=== PATIENT | female | born 1985 | race Caucasian/White ===

== ENCOUNTER 2017-01-19 05:04 | Emergency (ER) | payer OTHER ==
[~2017-01-19] VITALS: Ht 162.6 cm; Wt 69.4 kg
[2017-01-19 05:10] VITALS: BP_SYST 144
--- NOTE | 2017-01-19 05:10 | NUR ---
Patient to ER bed 8 to gown for evaluation. Side rails up.
--- NOTE | 2017-01-19 05:20 | NUR ---
PT IN BED 8 WITH C/O ABDOMINAL PAIN AND NAUSEA, DR ARIZA AWARE.
--- NOTE | 2017-01-19 05:21 | NUR ---
ER at bedside examining patient.
[2017-01-19] MEDS ORDERED: PREN-89 PO (05:24)
[2017-01-19] MEDS ORDERED: ONDANSETRON 4 MG ODT TAB PO ONE (05:30)
[2017-01-19 06:09] LABS: BILIRUBIN,URINE NEGATIVE (NEGATIVE); CLARITY/URINE HAZY (CLEAR); COLOR,URINE YELLOW (YELLOW); GLUCOSE,URINE NEGATIVE (NEGATIVE); KETONES,URINE NEGATIVE (NEGATIVE); LEUKOCYTE ESTERASE ,URINE 1+ (NEGATIVE); NITRITE, URINE NEGATIVE (NEGATIVE); PROTEIN URINE NEGATIVE (NEGATIVE); UROBILINOGEN,URINE 0.2 (0.2-1.0)
[2017-01-19 06:15] LABS: BASOPHILS % (AUTO) 0.4 % (0.0-2.0); EOSINOPHILS # (AUTO) 0.2 K/uL (0.0-0.4); EOSINOPHILS % (AUTO) 1.8 % (0.0-4.0); LYMPHOCYTES # (AUTO) 1.4 K/uL (1.0-5.5); LYMPHOCYTES % (AUTO) 14.4 % (20.5-51.5); MEAN CORPUSCULAR HEMOGLOBIN 28 pg (27-31); MEAN CORPUSCULAR HGB CONC 33 % (32-36); MEAN CORPUSCULAR VOLUME 85 fL (79.0-98.0); MONOCYTES # (AUTO) 0.9 K/uL (0.0-1.0); MONOCYTES % (AUTO) 9.4 % (1.7-9.3); NEUTROPHILS # (AUTO) 7.5 K/uL (1.8-7.7); PLATELET COUNT (AUTO) 213 K/uL (130-430); RED BLOOD CELL COUNT(AUTO) 4.62 MIL/uL (4.2-6.2); RED CELL DISTRIBUTION WIDTH 12.4 % (9.0-15.0)
[2017-01-19 06:17] LABS: BLOOD, URINE TRACE (NEGATIVE)
[2017-01-19 06:19] LABS: CALCIUM 8.8 mg/dL (8.4-11.0); CREATININE 0.77 mg/dL (0.55-1.30); POTASSIUM 3.7 mmol/L (3.5-5.1)
[2017-01-19 06:24] LABS: TOTAL BILIRUBIN 0.5 mg/dL (0.0-1.0); TOTAL PROTEIN, SERUM 8.1 g/dL (6.4-8.3)
[2017-01-19 06:33] LABS: RBC,URINE 0-3 /HPF (0-3)
[2017-01-19 06:34] LABS: BACTERIA,URINE FEW /HPF (None Seen); MUCUS,URINE 1+ /LPF (None Seen)
[2017-01-19 06:50] VITALS: BP_SYST 132
--- NOTE | 2017-01-19 06:51 | NUR ---
Patient given written and verbal discharge instructions and verbalizes understanding. ER MD discussed with patient the results and treatment provided. Patient in stable condition. ID arm band removed. Rx of ZOFRAN, MOTRIN given. Patient educated on pain management and to follow up with PMD. Pain Scale 0/10. Opportunity for questions provided and answered.
== END 2017-01-19 06:50 | disposition home or self-care (01) ==
LOC: SED 05:04
DX: R10.9 Unspecified abdominal pain (principal); R11.0 Nausea; R19.7 Diarrhea, unspecified; R51 Headache; J02.9 Acute pharyngitis, unspecified
CPT/HCPCS: 36415; 74020; 80053; 81000; 81025; 85025; 87086; 99285; Q0162

== ENCOUNTER 2022-06-12 09:24 | Emergency (ER) | payer BC, OTHER ==
[~2022-06-12] VITALS: Ht 162.6 cm; Wt 68.9 kg
[2022-06-12 09:24] VITALS: BP_SYST 131
[~2022-06-12 09:24] MED LIST: PREN-89 PO
--- NOTE | 2022-06-12 09:24 | NUR ---
BROUGHT BACK TO BED #3 AND TRIAGED.REPORT GIVEN TO EVENS
--- NOTE | 2022-06-12 09:50 | NUR ---
BISI Lara at bedside examining patient.
[2022-06-12] MEDS ORDERED: KETOROLAC TROMETHAMINE 60 MG/2 ML VIAL IM ONE (10:00)
--- NOTE | 2022-06-12 10:20 | NUR ---
Pt C/O migraines and left sided facial numbness Hx of Migraines AOX4 VSS Verbally responsive Able to make needs known Negative test UA dip done in ER
[2022-06-12] MEDS ORDERED: IBUP-1969 PO (10:44)
[2022-06-12] MEDS ORDERED: HYDR-3917 PO (10:44)
[2022-06-12 10:55] VITALS: BP_SYST 130
--- NOTE | 2022-06-12 10:57 | NUR ---
Patient given written and verbal discharge instructions and verbalizes understanding. ER MD discussed with patient the results and treatment provided. Patient in stable condition. ID arm band removed. Rx of given. Patient educated on pain management and to follow up with PMD. Opportunity for questions provided and answered. Medication side effect fact sheet provided.
== END 2022-06-12 10:57 | disposition home or self-care (01) ==
LOC: SED 09:24
DX: R51.9 Headache, unspecified (principal); M54.2 Cervicalgia; M54.50 Low back pain, unspecified; Z79.899 Other long term (current) drug therapy
CPT/HCPCS: 99284; 70450; 76376; 81002; 81025; 96372; J1885